=== PATIENT | female | born 1980 | race Caucasian/White ===

== ENCOUNTER 2018-07-23 20:07 | Emergency (ER) | payer OTHER ==
[2018-07-23 20:20] VITALS: BP 134/93; PULSE 70; TEMP 98.5; BMI 25.7
--- NOTE | 2018-07-23 20:24 | PDOC ---
History of Present Illness - General History Source: Patient Exam Limitations: No Limitations - History of Present Illness Initial Comments: 07/23/18 20:47 The patient is a 38 year old female with no significant PMH of who presents to the emergency department with vaginal spotting earlier today. The patient reports that she is about 6 weeks . She states that she noticed some vaginal spotting earlier today with some clotting. The patient reports some associated abdominal cramping with her spotting. She reports that her LMP was 09/15. She denies any OB follow up since finding out 4 positive at home tests. The patient denies any other symptoms. She denies any fever, chills, nausea, vomit, diarrhea constipation, or urinary symptoms. She denies any chest pain, shortness of breath, headache and dizziness. The patient denies any other complaints. PAST MEDICAL HISTORY: no significant history PAST SURGICAL HISTORY: no significant history FAMILY HISTORY: no pertinent history SOCIAL HISTORY: Pt lives with family and is employed. MEDICATIONS: reviewed ALLERGIES: As per nursing notes General: No fevers or chills, no weakness, no weight loss HEENT: No change in vision. No sore throat,. No ear pain CardioVascular: No chest pain or shortness of breath Respiratory:No cough, or wheezing. Gastrointestinal: no nausea, vomiting, diarrhea or constipation, No rectal bleeding Genitourinary: (+)vaginal spotting and cramping. No dysuria, hematuria, or frequency Musculoskeletal: No joint or muscle pain or swelling Neurologic: No headache, vertigo, dizziness or loss of consciousness Psychiatric: nor depression Skin: No rashes or easy bruising Endocrine: no increased thirst or abnormal weight change Allergic: no skin or latex allergy All other systems reviewed and normal GENERAL: The patient is awake, alert, and fully oriented, in no acute distress. HEAD: Normal with no signs of trauma. EYES: Pupils equal, round and reactive to light, extraocular movements intact, sclera anicteric, conjunctiva clear. EXTREMITIES: Normal range of motion, no edema. NEUROLOGICAL: Normal speech, normal gait. PSYCH: Normal mood, normal affect. SKIN: Warm, Dry, normal turgor, no rashes or lesions noted. PELVIC: (+)small amount of bloody discharge, cervical os closed. No adnexal tenderness. Documentation prepared by Lucy High, acting as medical tech for Brayan Han MD. <Lucy High - Last Filed: 07/23/18 20:47> - General History Source: Patient Exam Limitations: No Limitations - History of Present Illness Initial Comments: 07/23/18 20:54 A portion of this note was documented by scribe services under my direction. I have reviewed the details of the note, within reason, and agree with the documentation. The case summary and management plan written by me. Ultrasound shows an intrauterine gestation that is approximately 5 weeks 5 days. There is no heart rate detected. Assessment and plan: This is a 38-year-old female with spotting and early . Patient had a workup including type and screen, CBC, comp, hCG and ultrasound Patient's beta hCG quantitative was not available at the time she was discharged. She will call in the morning for the results and follow-up with an OB On Wednesday. I stressed the importance of having it repeated to make sure it is increasing appropriately. Patient discharged home with her will follow-up with her OB <Brayan Han I - Last Filed: 07/23/18 22:49> - General Chief Complaint: ,Possible Stated Complaint: SPOTTING Time Seen by Provider: 07/23/18 20:22 Past History <Lucy High - Last Filed: 07/23/18 20:47> - Past Medical History COPD: No - Reproductive History Is Patient Now?: Yes (#): 2 Para: 1 - Suicide/Smoking/Psychosocial Hx Smoking History: Never smoked Have you smoked in the past 12 months: No Information on smoking cessation initiated: No Hx Alcohol Use: No Drug/Substance Use Hx: No Substance Use Type: None <Brayan Han I - Last Filed: 07/23/18 22:49> - Past Medical History Allergies/Adverse Reactions: Allergies Allergy/AdvReac Type Severity Reaction Status Date / Time No Known Allergies Allergy Verified 07/23/18 20:12 Home Medications: Ambulatory Orders NK [No Known Home Medication] 03/19/14 *Physical Exam - Vital Signs Last Vital Signs Temp Pulse Resp BP Pulse Ox 98.5 F 70 16 134/93 100 07/23/18 20:09 07/23/18 20:09 07/23/18 20:09 07/23/18 20:09 07/23/18 20:09 <LennoxLucy - Last Filed: 07/23/18 20:47> - Vital Signs Last Vital Signs Temp Pulse Resp BP Pulse Ox 98.5 F 70 16 134/93 100 07/23/18 20:09 07/23/18 20:09 07/23/18 20:09 07/23/18 20:09 07/23/18 20:09 <Brayan Han I - Last Filed: 07/23/18 22:49> ED Treatment Course - LABORATORY CBC & Chemistry Diagram: 07/23/18 20:30 <Brayan Hna I - Last Filed: 07/23/18 22:49> *DC/Admit/Observation/Transfer <LennoxLucy - Last Filed: 07/23/18 20:47> - Discharge Dispostion Decision to Admit order: No <Brayan Han I - Last Filed: 07/23/18 22:49> Diagnosis at time of Disposition: Threatened in early - Discharge Dispostion Disposition: HOME Condition at time of disposition: Good - Referrals Referrals: Joe Rockwell MD [Primary Care Provider] - - Patient Instructions Additional Instructions: Your ultrasound is normal. There was no heart rate visible however the is early enough that no heart rate is unusual at this stage of the . Call your OB in follow-up with your OB on Wednesday. Your hormone test is also not available at this time. Call in the morning for that resolved as the your OB want to know what it is. Return to the emergency department immediately with ANY new, persistent or worsening symptoms. Continue any medications as previously prescribed by your physician. You should follow up with your OB doctor as soon as possible regarding today's emergency department visit. . Please make sure your doctor reviews the results of your emergency evaluation. Thank you for coming to the Emergency Department today for your care. It was a pleasure to see you today. Please note that your evaluation is INCOMPLETE until you follow-up with your doctor. - Post Discharge Activity
[2018-07-23 20:51] LABS: HCG,QUALITATIVE URINE Positive; PH,URINE 6.5 (4.5-8); URINE APPEARANCE Clear; URINE BILIRUBIN Negative (NEGATIVE); URINE COLOR Yellow; URINE GLUCOSE (UA) Negative (NEGATIVE); URINE KETONE Negative (NEGATIVE); URINE LEUK ESTERASE Negative (NEGATIVE); URINE NITRITE Negative (NEGATIVE); URINE PROTEIN Negative (NEGATIVE); URINE UROBILINOGEN 0.2 (0.2-1.0)
[2018-07-23 21:07] LABS: BASO % 0.6 % (0-2.0); EOS % 0.7 % (0-4.5); HEMATOCRIT 40.4 % (32.4-45.2); HEMOGLOBIN 13.5 GM/dl (10.7-15.3); LYMPH % 31.1 % (8-40); MCH 29.3 pg (25.7-33.7); MCHC 33.5 g/dl (32.0-36.0); MEAN CELL VOLUME 87.5 fl (80-96); MEAN PLT VOLUME 9.2 fl (7.5-11.1); MONO % 7.3 % (3.8-10.2); NEUT % 60.3 % (42.8-82.8); PLATELET COUNT 292 K/MM3 (134-434); RBC 4.62 M/mm3 (3.60-5.2); RDW 12.4 % (11.6-15.6); WHITE BLOOD COUNT 7.2 K/mm3 (4.0-10.8)
[2018-07-23 21:18] LABS: AMORP URATES FEW /hpf (NONE SEEN); EPI CELLS FEW /HPF; URINE BACTERIA FEW /hpf (NEGATIVE); URINE WBC 0-2 (0-5)
== END 2018-07-23 22:03 | disposition home or self-care (01) ==
LOC: FER 20:07
DX: O26.891 Other specified pregnancy related conditions, first trimester (principal); Z3A.01 Less than 8 weeks gestation of pregnancy; O20.0 Threatened abortion
CPT/HCPCS: 36415; 76815-TC; 81003; 81015; 84702; 84703; 85025; 86850; 86900; 86901; 99283-25